=== PATIENT | female | born 2000 | race Two or more races ===

== ENCOUNTER 2024-10-26 08:56 | Outpatient (CLI) | payer OTHER ==
[2024-10-27 08:04] LABS: HEPATITIS A ANTIBODY IGG Positive (Negative); HEPATITIS B SURFACE ANTIBODY Non Reactive (.); HEPATITIS C VIRUS ANTIBODY Non Reactive (Non Reactive)
== END 2024-10-26 09:11 | disposition home or self-care (01) ==
LOC: LAB 08:56
DX: A64 Unspecified sexually transmitted disease (principal); B17.9 Acute viral hepatitis, unspecified; Z20.5 Contact with and (suspected) exposure to viral hepatitis